=== PATIENT | male | born 1965 | race Two or more races ===

== ENCOUNTER 2018-06-29 01:37 | Emergency (ER) | payer OTHER ==
--- NOTE | 2018-06-29 02:50 | EDPHY ---
H & P Stated Complaint: tooth extraction today, bleeding from socket Time Seen by Provider: 06/29/18 01:49 HPI/ROS: History obtained using family acting as [place] language translation per their preference. HPI The patient presents with bleeding from sites of dental extractions which were performed at about 2:00 p.m. Yesterday, approximately 12 hr ago. The patient had multiple molars both upper and lower on the left side of his mouth removed by a dentist today. Ever since the procedure he has had bleeding from the upper molar sites. He has been unable to control this at home so he comes to the emergency department.. REVIEW OF SYSTEMS 10 systems were reviewed and negative with the exception of the elements mentioned in the history of present illness. PMHx: Type 2 diabetes on oral medication Soc Hx: Here with his family PHYSICAL General Appearance: Alert, no distress Eyes: Pupils equal and round no pallor or injection ENT, Mouth: Mucous membranes moist, large clot with active oozing present in the left upper molar location Respiratory: Breathing comfortably Neurological: A&O, moves all extremities Skin: Warm and dry, no rashes Musculoskeletal: Neck is supple non tender Extremities: symmetrical, full range of motion Psychiatric: Patient is oriented X 3, there is no agitation Source: Patient, Family Exam Limitations: No limitations - Personal History Current Tetanus Diphtheria and Acellular Pertussis (TDAP): Yes - Medical/Surgical History Hx Diabetes: Yes Other PMH: NIDDM - Social History Smoking Status: Never smoked Constitutional: Initial Vital Signs Temperature (C) 36.8 C 06/29/18 01:43 Heart Rate 86 06/29/18 01:43 Respiratory Rate 16 06/29/18 01:43 Blood Pressure 173/98 H 06/29/18 01:43 O2 Sat (%) 95 06/29/18 01:43 O2 Delivery Mode Room Air Allergies/Adverse Reactions: No Known Allergies Allergy (Unverified 06/29/18 01:41) Home Medications: Medication Instructions Recorded Po Meds For Dm 06/29/18 Medical Decision Making Differential Diagnosis: This is a 52-year-old man status post multiple molar extraction by a dentist about 12 hr ago, now with significant bleeding from upper molar site of extraction. Initially, I placed TXA soaked cotton ball over the site for 20 min. He had ongoing bleeding. Thus, I placed Gelfoam over the bleeding site. This was unsuccessful as well. I ultimately removed a large amount of clot from the tooth socket and packed it with Surgicel. He had no ongoing bleeding after this. I have given him return precautions. He will be discharged home with his family. Departure - Departure Disposition: Home, Routine, Self-Care Clinical Impression: Surgical wound hemorrhage after dental procedure Condition: Good Instructions: Acute Dental Trauma (ED) Additional Instructions: If the bleeding returns, you should try sucking on a black tea bag to see if this helps. Please follow-up with your dentist tomorrow. Referrals: Patient,NotPresent [Unknown] - As per Instructions Print Language: [place]
[2018-06-29 03:53] VITALS: BP 133/75
== END 2018-06-29 03:53 | disposition home or self-care (01) ==
DX: K91.840 Postprocedural hemorrhage of a digestive system organ or structure following a digestive system procedure (principal); E11.9 Type 2 diabetes mellitus without complications